=== PATIENT | female | born 1960 | race Caucasian/White ===

== ENCOUNTER 2022-07-08 06:37 | Day surgery (SDC) | payer MEDICAID, SELFPAY ==
[2022-07-08 06:47] VITALS: BP 128/72; PULSE 71; RESP 16; TEMP 36.4; O2SAT 98; BMI 24.0
[2022-07-08] MEDS: BUPIVACAINE 0.5% 30 ML INJECTION (07:00)
[2022-07-08] MEDS: ETHYL CHLORIDE 1 APPLICATION 1 APPLIC TOPICAL (07:00)
[2022-07-08 07:16] VITALS: BP 132/78; PULSE 65; RESP 16
[2022-07-08 07:21] VITALS: BP 136/78; PULSE 71; RESP 16; O2SAT 100
[2022-07-08 07:26] VITALS: BP 141/82; PULSE 67; RESP 60; O2SAT 100
--- NOTE | 2022-07-08 07:27 | P.ORPRC_ITS ---
Procedure Note Date of procedure: 07/08/22 Procedure: PREOPERATIVE DIAGNOSIS: 1. Right carpal tunnel syndrome POSTOPERATIVE DIAGNOSIS: 1. Right carpal tunnel syndrome PROCEDURE: 1. Right open carpal tunnel release SURGEON: Juan Jose Blanco MD. LICENSING COURT MAGISTRATE: KATHRYN Alvarez ANESTHESIA: Local anesthetic (50:50 mixture of 1% lidocaine with epi and 0.5% marcaine plain) - 10ml total IMPLANTS: None EBL: 2 mL TOURNIQUET: None COMPLICATIONS: None evident INDICATIONS: The patient is a pleasant 62-year-old female who has experienced right hand numbess/tingling affecting the radial 3.5 digits for multiple months. It has progressively gotten worse. Nonoperative management has been tried and failed, and therefore surgery was recommended. DESCRIPTION OF PROCEDURE: Following a thorough discussion of risks, benefits, and alternatives consent was obtained and the operative extremity was marked. The patient was brought to the operating room and placed supine on the operating table. Local anesthesia induction was undertaken in preop holding. No antibiotics were administered as this was planned to be a local case only. Proper time-out was performed identifying proper patient, site, and procedure. The operative extremity was prepped and draped in the appropriate sterile fashion using ChloraPrep. An incision was made in line with the radial border of the ring finger beginning 1 cm distal to the distal wrist crease and progressing for another 2.5cm distal. Caution was taken to stay proximal to Sheldon's cardinal line. Sharp incision through the skin, subcutaneous tissue, and palmar fascia was performed. The thenar musculature was bluntly elevated off the transverse carpal ligament. The ligament was directly visualized, and divided sharply with a 15 blade. This was released from its most proximal to the most distal extent. Metzenbaum scissor was also utilized to release the fascia extension proximally. We confirmed complete release of the transverse carpal ligament. Closure was performed with 4-O nylon in interrupted fashion. Soft dressings were applied, and the patient was transferred to the recovery room in stable condition. PLAN: 1. Encourage elevation of the operative extremity. 2. Range of motion of the fingers and hand/wrist as tolerated. 3. Ibuprofen/acetaminophen and/or Percocet as needed for pain control. 4. Follow up with PA visit or nurse visit in 12-16 days for wound check and suture removal.
[2022-07-08] MEDS: NEOMYCIN/BACITRACIN/POLYMYXIN B 1 APPLIC TOPICAL (07:29)
--- NOTE | 2022-07-08 07:30 | SUR.OPER ---
PATIENT QUESTIONS ANSWERED SATISFACTORILY PREOPERATIVELY.? PATIENT BROUGHT TO OR #2 PER WHEELCHAIR.? Patient positioned supine on OR #2 bed.? The perioperative?team supported right arm bilaterally on arm boards. Final approval of positioning by surgeon.
[2022-07-08 07:31] VITALS: BP 138/80; PULSE 61; RESP 16; O2SAT 100
[2022-07-08 07:37] VITALS: BP 143/77; PULSE 58; RESP 16; TEMP 36.3; O2SAT 95
== END 2022-07-08 08:02 | disposition home or self-care (01) ==
PROVIDERS: PCP Physician Assistant Medical; Visit Provider Orthopaedic Surgery Sports Medicine
PROC: (CPT 64721; principal; 2022-07-08 07:30)
DX: G56.01 Carpal tunnel syndrome, right upper limb (principal)
CPT/HCPCS: 64721; J3490